=== PATIENT | female | born 1965 | race Caucasian/White ===

== ENCOUNTER → 2018-05-16 | Outpatient (CLI) | payer BC ==
[~2018-05-16] MED LIST: AZI250 PO; CHOL10005 PO; FLU180SY11 IM; HYDR-653 PO; IBUP800T37 PO; IRON18TA2 PO; MEGE20TA7 PO; ROBC PO; VARI50KI IM
--- NOTE | 2018-05-18 08:30 | RADIOLOGY IMAGING REPORT ---
FACILITY: [facility] - [place] PATIENT NAME: LOLIS WHEELER : [id number] MR: [id number] V: [id number] EXAM DATE: ORDERING PHYSICIAN: LISBET MCCORMICK TECHNOLOGIST: Mamie Resendiz RDMS(ABD,OBGYN,BR),RVT PROCEDURE:US LEFT BREAST COMPARISON:Today's Left mammogram INDICATIONS:SCREENING & LEFT BREAST PAIN/PT ALSO COMPLAINS OF LEFT BREAST PAIN MEDIAL & INFERIOR FINDINGS: In the 1 o'clock position Left breast 3cm from the nipple there is an ovoid partially cystic structure with a central echogenic region which may represent fatty striations within a cluster of cysts vs a small intramammary lymph node. This measures 9x9x3.6mm. This may account for the recent mammographic finding. In the 1 o'clock position Left breast 2cm from the nipple there is a small 5mm cyst. In the 1 o'clock position of the Left breast 1cm from the nipple is a 6mm cyst. In the 3 o'clock position Left breast 1cm from the nipple is an ovoid cystic area with a small central echogenic region which may represent a cluster of cysts with interposing fat striations. This measures 8x9x3.3mm. In the 4 o'clock position 1cm from the nipple there is a 7mm cyst. In the 5 o'clock position of the Left breast there is a 5mm cyst. In the Left retroareolar region there is a mildly prominent duct measuring 2.8mm in diameter. No internal debris or internal mass identified within the duct. DIAGNOSTIC CATEGORY 3--PROBABLY BENIGN FINDING. RECOMMENDATIONS: SIX MONTH FOLLOW-UP DIAGNOSTIC MAMMOGRAM: LEFT BREAST. SIX MONTH FOLLOW-UP ULTRASOUND: LEFT BREAST. IMPRESSION: BIRADS 3: Probably benign finding. There are multiple cystic areas some with interposed echogenic regions which may represent fatty striations interposed amongst a cluster of cysts or possibly intramammary lymph nodes. A 6 month follow up Left mammogram & Left breast Ultrasound is recommended to assure stability. Dictated by: Arabella Metz M.D. on 05/16/2018 at 16:53 Transcribed by: DYLAN on 05/17/2018 at 14:20 Approved by: Arabella Metz M.D. on 05/18/2018 at 8:29 [facility]
--- NOTE | 2018-05-18 08:30 | RADIOLOGY IMAGING REPORT ---
FACILITY: [facility] PATIENT NAME: LOLIS WHEELER : [id number] MR: [id number] V: [id number] EXAM DATE: [id number] ORDERING PHYSICIAN: LISBET MCCORMICK TECHNOLOGIST: Stefani Mccarthy PROCEDURE:BILATERAL DIAGNOSTIC DIGITAL MAMMOGRAM WITH CAD ASSISTED INTERPRETATION & 3D TOMOSYNTHESIS COMPARISON:None. INDICATIONS:screening and left breast pain, medial & lower x 2 months FINDINGS: The breasts are heterogeneously dense which may obscure small masses. In the Left XCC view there is a slightly lobular nodule in the later portion of the Left breast anterior third. On the MLO view this appears to be in the upper portion of the Left breast. Left breast Ultrasound was performed for further evaluation demonstrating a 9x9x3.6mm ovoid nodular area that appeared partially cystic & partially echogenic. This may represent a cluster of cysts with interposed fat striations vs a small lymph node. This may account for the mammographic findings. A 6 month follow up Left mammogram & Left breast Ultrasound is recommended for further evaluation. DIAGNOSTIC CATEGORY 3--PROBABLY BENIGN FINDING. RECOMMENDATIONS: SIX MONTH FOLLOW-UP DIAGNOSTIC MAMMOGRAM: LEFT BREAST. SIX MONTH FOLLOW-UP ULTRASOUND: LEFT BREAST. IMPRESSION: BIRADS 3: Probably benign finding. A 6 month follow up Left breast Ultrasound & Left mammogram recommended as described above. Dictated by: Arabella Metz M.D. on 05/16/2018 at 16:50 Transcribed by: DYLAN on 05/17/2018 at 14:10 Approved by: Arabella Metz M.D. on 05/18/2018 at 8:28 [facility]
== END ==
LOC: MAMO 01:08
PROVIDERS: ATTEND Nurse Practitioner Family
DX: N63.22 Unspecified lump in the left breast, upper inner quadrant (principal); N63.24 Unspecified lump in the left breast, lower inner quadrant
CPT/HCPCS: 77062; 77066

== ENCOUNTER → 2018-09-14 | Outpatient (CLI) | payer BC ==
[~2018-09-14] MED LIST changes: +MEDR10TA65 PO
== END ==
LOC: LAB 15:01
PROVIDERS: ATTEND Student in an Organized Health Care Education/Training Program
DX: N93.9 Abnormal uterine and vaginal bleeding, unspecified (principal)
CPT/HCPCS: 36415; 84443; 85027